=== PATIENT | female | born 2000 | race African-American/Black ===

== ENCOUNTER 2022-02-27 20:46 | Emergency (ER) | payer OTHER ==
[2022-02-27 21:16] LABS: CLARITY,URINE HAZY (CLEAR)
--- NOTE | 2022-02-27 21:22 | ED Physician Documentation ---
PD HPI ABD PAIN - Stated complaint Stated Complaint: FEMALE /NAUSEA/FEVER - Chief complaint Chief Complaint: UTI - History obtained from History obtained from: Patient - History of Present Illness Timing - onset: How many days ago Timing - duration: Days Pain level max: 8 Pain level now: 6 Location: All over / everywhere Associated symptoms: Dysuria. No: Fever, Nausea, Vomiting, Hematemesis, Diarrhea, Constipation, Melena, Hematochezia Recently seen: Not recently seen - Additional information Additional information: Patient is a 21-year-old female who presents to the emergency department with dysuria for the past several days. Also complains of bilateral flank pain and right lower quadrant abdominal pain. Described as dull, aching. Worse with palpation and movement. T-max 99 at home. Has had a UTI in the past but states that this feels slightly different. No nausea, vomiting, diarrhea, constipation. No history of ureteral stones. No history of pyelonephritis. Patient states she believes that she is not . Her LMP was about 1 month ago No vaginal discharge or bleeding. No exposure to STI that she is aware of Review of Systems Constitutional: denies: Fever, Chills Throat: denies: Sore throat Cardiac: denies: Chest pain / pressure, Palpitations Respiratory: denies: Cough GI: denies: Vomiting, Diarrhea : reports: Dysuria, Frequency. denies: Hematuria, Discharge Skin: denies: Rash Musculoskeletal: denies: Neck pain, Back pain Neurologic: denies: Headache PD PAST MEDICAL HISTORY - Past Medical History Past Medical History: Yes : Other Other Past Medical History: UTI; Kidney Infection - Past Surgical History Past Surgical History: Yes - Present Medications Home Medications: Ambulatory Orders Medication Instructions Recorded Confirmed No Known Home Medications 02/27/22 02/27/22 - Allergies Allergies/Adverse Reactions: Allergies Allergy/AdvReac Type Severity Reaction Status Date / Time No Known Drug Allergies Allergy Verified 02/27/22 20:54 - Social History Does the pt smoke?: No Smoking Status: Never smoker Does the pt drink ETOH?: Yes Does the pt have substance abuse?: No - Immunizations Immunizations are current?: Yes - POLST Patient has POLST: No PD ED PE NORMAL - Vitals Vital signs reviewed: Yes - General General: Alert and oriented X 3, No acute distress - HEENT HEENT: PERRL, Moist mucous membranes - Neck Neck: Supple, no meningeal sign - Cardiac Cardiac: RRR - Respiratory Respiratory: No respiratory distress, Clear bilaterally - Abdomen Abdomen: Soft, Non tender, Non distended, Other (Tender to palpation right lower quadrant or McBurney's point, no peritoneal signs. Negative Rovsing, psoas, obturator signs) - Back Back: Other (Mild right-sided CVA tenderness) - Derm Derm: Warm and dry - Extremities Extremities: No edema, No calf tenderness / cord - Neuro Neuro: Alert and oriented X 3 - Psych Psych: Normal mood, Normal affect Results - Vitals Vitals: Vital Signs - 24 hr 02/27/22 20:50 Temperature 37 C Heart Rate 81 Respiratory 17 Rate Blood Pressure 131/88 H O2 Saturation 98 Oxygen O2 Source Room air - Labs Labs: Laboratory Tests 02/27/22 02/27/22 02/27/22 21:00 21:22 21:22 WBC 7.5 RBC 4.28 Hgb 12.6 Hct 38.2 MCV 89.3 MCH 29.4 MCHC 33.0 RDW 12.6 Plt Count 378 MPV 9.8 Neut # (Auto) 4.1 Lymph # (Auto) 2.7 [place] # (Auto) 0.6 Eos # (Auto) 0.0 Baso # (Auto) 0.0 Absolute Nucleated RBC 0.00 Nucleated RBC % 0.0 Sodium Potassium Chloride Carbon Dioxide Anion Gap BUN Creatinine Estimated GFR (MDRD) Glucose Calcium Total Bilirubin AST ALT Alkaline Phosphatase Total Protein Albumin Globulin Albumin/Globulin Ratio Lipase Serum HCG, Qual NEGATIVE Urine Color ORANGE Urine Clarity HAZY Urine pH Ur Specific [place] Urine Protein Urine Glucose (UA) Urine Ketones Urine Occult Blood Urine Nitrite Urine Bilirubin Urine Urobilinogen Ur Leukocyte Esterase Urine RBC 0-5 Urine WBC >25 H Ur Squamous Epith Cells FEW Squamous Urine Bacteria Moderate H Ur Microscopic Review INDICATED Urine Culture Comments INDICATED Urine HCG, Qual Cancelled 02/27/22 21:22 WBC RBC Hgb Hct MCV MCH MCHC RDW Plt Count MPV Neut # (Auto) Lymph # (Auto) [place] # (Auto) Eos # (Auto) Baso # (Auto) Absolute Nucleated RBC Nucleated RBC % Sodium 138 Potassium 4.2 Chloride 101 Carbon Dioxide 26 Anion Gap 11.0 BUN 15 Creatinine 0.8 Estimated GFR (MDRD) 109 Glucose 88 Calcium 9.1 Total Bilirubin 1.7 H AST 21 ALT 20 Alkaline Phosphatase 62 Total Protein 7.6 Albumin 4.5 Globulin 3.1 Albumin/Globulin Ratio 1.5 Lipase 33 Serum HCG, Qual Urine Color Urine Clarity Urine pH Ur Specific [place] Urine Protein Urine Glucose (UA) Urine Ketones Urine Occult Blood Urine Nitrite Urine Bilirubin Urine Urobilinogen Ur Leukocyte Esterase Urine RBC Urine WBC Ur Squamous Epith Cells Urine Bacteria Ur Microscopic Review Urine Culture Comments Urine HCG, Qual - Rads (name of study) CT abdomen pelvis Radiology: Final report received, EMP read contemporaneously, See rad report PD MEDICAL DECISION MAKING - ED course Complexity details: reviewed results, re-evaluated patient, considered differential, d/w patient ED course: Patient will be signed out to Dr. Cao for final disposition. Patient is awaiting CT scan at this time of signout. She was given a dose of Rocephin here, likely early pyelonephritis. Unless there is significant findings on CT scan, anticipate she will be able to be discharged home on antibiotics. Patient is well-appearing, nontoxic. Afebrile. Please see his note for final disposition. Departure - Departure Clinical Impression: Urinary tract infection Qualifiers: Urinary tract infection type: acute cystitis Hematuria presence: without hematuria Qualified Code(s): N30.00 - Acute cystitis without hematuria Condition: Stable
[2022-02-27 21:23] LABS: RBC,URINE 0-5 /HPF (0-5); SQUAMOUS EPITHELIAL CELL,UR FEW Squamous (<= Few); WBC,URINE >25 /HPF (0-5)
[2022-02-27 21:24] LABS: BACTERIA,URINE Moderate /HPF (None Seen)
[2022-02-27] MEDS ORDERED: cefTRIAXone 1 GM VIAL IVP STA (21:27)
[2022-02-27] MEDS ORDERED: KETOROLAC 30 MG/ML VIAL IVP STA (21:27)
[2022-02-27] MEDS ORDERED: IOVERSOL 320 100 ML VIAL IVP ONE ×2 (21:27→22:09)
[2022-02-27 21:28] LABS: BASOPHILS % (AUTO) 0.4 %; EOSINOPHILS % (AUTO) 0.5 %; HCT - HEMATOCRIT 38.2 % (37.0-47.0); HGB - HEMOGLOBIN 12.6 g/dL (12.0-16.0); LYMPHOCYTES # (AUTO) 2.7 10^3/uL (1.5-3.5); LYMPHOCYTES % (AUTO) 36.5 %; MEAN CORPUSCULAR HEMOGLOBIN 29.4 pg (27.0-31.0); MEAN CORPUSCULAR VOLUME 89.3 fL (81.0-99.0); MEAN PLATELET VOLUME 9.8 fL (7.9-10.8); MONOCYTES # (AUTO) 0.6 10^3/uL (0.0-1.0); MONOCYTES % (AUTO) 8.1 %; NEUTROPHILS # (AUTO) 4.1 10^3/uL (1.5-6.6); NEUTROPHILS % (AUTO) 54.4 %; PLT - PLATELET COUNT 378 10^3/uL (130-450); RED BLOOD COUNT 4.28 10^6/uL (4.20-5.40); RED CELL DISTRIBUTION WIDTH 12.6 % (12.0-15.0); WHITE BLOOD COUNT 7.5 x10^3/uL (4.8-10.8)
[2022-02-27 21:42] LABS: ALBUMIN 4.5 g/dL (3.2-5.5); ALBUMIN/GLOBULIN RATIO 1.5 (1.0-2.2); BILIRUBIN,TOTAL 1.7 mg/dL (0.2-1.0); CALCIUM 9.1 mg/dL (8.5-10.3); CREATININE 0.8 mg/dL (0.4-1.0); POTASSIUM 4.2 mmol/L (3.5-5.0); TOTAL PROTEIN 7.6 g/dL (6.7-8.2)
[2022-02-27 21:50] LABS: HCG,QUALITATIVE BLOOD NEGATIVE
--- NOTE | 2022-02-27 22:29 | CT Report ---
PROCEDURE: Abdomen/Pelvis W INDICATIONS: RLQ Abdominal pain, appendicitis suspected CONTRAST: IV CONTRAST: Optiray 320 ml: 100 PO CONTRAST: *NO PO CONTRAST TECHNIQUE: After the administration of weight appropriate dose of intravenous contrast, 5 mm thick sections acqu ired from the diaphragms to the symphysis. 5 mm thick coronal and sagittal reformats were acquired. For radiation dose reduction, the following was used: automated exposure control, adjustment of mA and/or kV according to patient size. COMPARISON: None. FINDINGS: Image quality: Excellent. ABDOMEN: Lung bases: Lung bases are clear. Heart size is normal. Solid organs: Liver and spleen are normal in size and enhancement. Gallbladder is unremarkable. Bi liary system is non dilated. Pancreas enhances normally. No adrenal nodules. Kidneys demonstrate n ormal size and enhancement, without hydronephrosis. Peritoneum and bowel: Bowel loops demonstrate normal wall thickness and caliber. No free air. The a ppendix is not definitively visualized. However, no secondary findings for acute inflammation noted i n the right lower quadrant. There is a very small amount of pelvic free fluid likely physiologic. The re are postsurgical changes from previously gastrectomy. Nodes and vessels: No retroperitoneal or mesenteric adenopathy by size criteria. Aorta and inferior vena cava are normal in size. Miscellaneous: No ventral hernias. PELVIS: Genitourinary: Bladder wall thickness is normal. There is a likely 1.9 cm functional cyst in the le ft ovary. Miscellaneous: No inguinal hernias or adenopathy. Bones: No suspicious bony lesions. No acute vertebral body compression fractures. IMPRESSION: 1. CT abdomen and pelvis without acute abnormalities identified. The appendix is not definitively vis ualized; however, the most likely candidate appears within normal limits. No secondary findings for a cute inflammation in the right lower quadrant. 2. Small amount of pelvic free fluid likely physiologic in etiology. Other considerations may include recently ruptured ovarian cyst. 3. 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 Reviewed by: Agustin Washington MD on 02/27/2022 10:27 PM PDT Approved by: Agustin Washington MD on 02/27/2022 10:27 PM PDT Station ID: [id number]
[2022-02-27 23:33] VITALS: BP 122/68
--- NOTE | 2022-02-28 08:25 | ED Physician Documentation ---
ED Addendum - Addendum Addendum: 02/28/22 08:24 Received sign out from Dr. Ramirez at the end of his shift, pending CT results at that time. Patient presents with dysuria and bilateral flank pain with RLQ pain. Unremarkable blood tests. UA is c/w UTI and she is given IV Rocephin in ED for this. CT interpreted by radiologist as follows: 1. CT abdomen and pelvis without acute abnormalities identified. The appendix is not definitively visualized; however, the most likely candidate appears within normal limits. No secondary findings for acute inflammation in the right lower quadrant. 2. Small amount of pelvic free fluid likely physiologic in etiology. Other considerations may include recently ruptured ovarian cyst. 3. 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 I discussed the CT results with patient. She is in NAD and reports feeling better after the IV toradol given earlier. Prescription for cefuroxime electronically submitted to [facility] pharmacy. 02/28/22 08:29 I received a call from the patient at this time; she is at the [facility] and says that she was told they do not have cefuroxime but that they have keflex. I thus submitted a prescription for keflex 500mg QID x 1 week to [facility] pharmacy
== END 2022-02-27 23:33 | disposition home or self-care (01) ==
LOC: ED 20:46
DX: N30.00 Acute cystitis without hematuria (principal)
CPT/HCPCS: 36415; 74177; 80053; 81001; 83690; 84703; 85025; 87086; 96374; 96375; 99282; 99284; Q9967; 81003; 81025; 87077; 87181